=== PATIENT | male | born 1935 | race Caucasian/White ===

== ENCOUNTER 2023-01-14 16:02 | Observation (INO) | payer BC, MEDICARE ==
[2023-01-14] MEDS ORDERED: SODIUM CHLORIDE 0.9% 1,000 ML IV STA (17:25)
[2023-01-14] MEDS ORDERED: MORPHINE SULFATE 4 MG/ML SYRINGE IV STA (17:25)
--- NOTE | 2023-01-14 17:28 | ED ---
Recheck HPI - General Chief Complaint: Recheck/Abnormal Lab/Rx Stated Complaint: cath issue Time Seen by Provider: 01/14/23 17:03 Source: patient, family, RN notes reviewed, old records reviewed, Caregiver Mode of arrival: ambulatory Limitations: no limitations - History of Present Illness Initial Comments: This is a 87-year-old male to the emergency department today. Patient presents for evaluation of inability to ER today. Patient has had a recent Gee catheter placed secondary to urinary retention need be. Patient currently has second for limited and placed secondary retention bleeding and clotting Patient has persistent severe pain with bleeding which occurred after Gee was placed initial Gee had no bleeding. Patient's fluid and stopped working he had a second one place and that is also stop working patient presents today for urol ogical evaluation Complaint: other (0) -: minutes(s) Returns Today for: persistent/worsening pain related to initial visit Context: planned re-check Associated Symptoms: none Treatments Prior to Arrival: other (0) - Related Data Home Medications Medication Instructions Recorded Confirmed Cholecalciferol [Vitamin D3 (25 25 mcg PO DAILY 01/14/23 01/14/23 Mcg = 1000 Iu)] Finasteride [Proscar] 5 mg PO HS 01/14/23 01/14/23 Multivit-Min/FA/Lycopen/Lutein 1 tab PO DAILY 01/14/23 01/14/23 [Centrum Silver Men Tablet] [place]-3 Fatty Acids [[place]-3] 1,000 mg PO HS 01/14/23 01/14/23 Omeprazole 20 mg PO DAILY 01/14/23 01/14/23 Pioglitazone [Actos] 30 mg PO HS 01/14/23 01/14/23 Terazosin [Hytrin] 5 mg PO HS 01/14/23 01/14/23 Vitamin B Complex With Vitamin C 1 tab PO DAILY 01/14/23 01/14/23 glipiZIDE 5 mg PO AC-SUPPER@1700 01/14/23 01/14/23 glipiZIDE [Glucotrol] 10 mg PO AC-BRKFST@1000 01/14/23 01/14/23 Previous Rx's Medication Instructions Recorded Atorvastatin [Lipitor] 10 mg PO HS #30 tab 01/16/23 Allergies Allergy/AdvReac Type Severity Reaction Status Date / Time No Known Allergies Allergy Verified 01/14/23 20:09 Review of Systems ROS Statement: Those systems with pertinent positive or pertinent negative responses have been documented in the HPI. ROS Other: All systems not noted in ROS Statement are negative. Past Medical History Past Medical History: Prostate Disorder History of Any Multi-Drug Resistant Organisms: None Reported Past Surgical History: Back Surgery Past Psychological History: No Psychological Hx Reported Smoking Status: Never smoker Past Alcohol Use History: None Reported Past Drug Use History: None Reported General Exam Limitations: no limitations General appearance: anxious Head exam: Present: atraumatic, normocephalic, normal inspection Eye exam: Present: normal appearance, PERRL, EOMI. Absent: scleral icterus, conjunctival injection, periorbital swelling ENT exam: Present: normal exam, mucous membranes moist Neck exam: Present: normal inspection. Absent: tenderness, meningismus, lymphadenopathy Respiratory exam: Present: normal lung sounds bilaterally. Absent: respiratory distress, wheezes, rales, rhonchi, stridor Cardiovascular Exam: Present: regular rate, normal rhythm, normal heart sounds. Absent: systolic murmur, diastolic murmur, rubs, gallop, clicks GI/Abdominal exam: Present: soft, normal bowel sounds. Absent: distended, tenderness, guarding, rebound, rigid Extremities exam: Present: normal inspection, full ROM, normal capillary refill. Absent: tenderness, pedal edema, joint swelling, calf tenderness Back exam: Present: normal inspection Neurological exam: Present: alert, oriented X3, CN II-XII intact Psychiatric exam: Present: normal affect, normal mood Skin exam: Present: warm, dry, intact, normal color. Absent: rash Course Vital Signs 01/14/23 01/14/23 01/14/23 16:48 17:02 17:40 Temperature 98.3 F Pulse Rate 112 H Pulse Rate [ Right Pulse Oximetery] Respiratory 26 H 30 H Rate Blood Pressure 154/69 Blood Pressure [Right Arm Supine] O2 Sat by Pulse 99 Oximetry 01/14/23 01/14/23 01/14/23 18:04 20:30 22:45 Temperature Pulse Rate 100 81 84 Pulse Rate [ Right Pulse Oximetery] Respiratory 20 18 16 Rate Blood Pressure 110/66 114/58 110/63 Blood Pressure [Right Arm Supine] O2 Sat by Pulse 95 Oximetry 01/15/23 01/15/23 01/15/23 02:02 08:00 08:10 Temperature Pulse Rate 73 Pulse Rate [ 78 82 Right Pulse Oximetery] Respiratory 18 17 17 Rate Blood Pressure 114/67 Blood Pressure 105/57 [Right Arm Supine] O2 Sat by Pulse 96 Oximetry 01/15/23 12:00 Temperature 98.4 F Pulse Rate Pulse Rate [ 78 Right Pulse Oximetery] Respiratory 17 Rate Blood Pressure Blood Pressure 96/66 [Right Arm Supine] O2 Sat by Pulse 97 Oximetry - Reevaluation(s) Reevaluation #1: 01/14/23 23:49 Medical record is reviewed Reevaluation #2: 01/14/23 23:49 Patient's pain is improved, symptoms resolved after Gee placed Good output bloody urine Reevaluation #3: 01/14/23 23:49 Patient informed results and questions answered Reevaluation #4: 01/14/23 23:49 Was pt. sent in by a medical professional or institution (, PA, LETTERPRESS SETTER, urgent care, hospital, or correction...) When possible be specific @ -no Did you speak to anyone other than the patient for history (EMS, parent, family, police, friend...)? What history was obtained from this source @ -no Did you review nursing and triage notes (agree or disagree)? Why? @ -agree Are old charts reviewed (outside hosp., previous admission, EMS record, old EKG, old radiological studies, urgent care reports/EKG's, correction records)? Report findings @ -yes Differential Diagnosis (chest pain, altered mental status, abdominal pain women, abdominal pain men, vaginal bleeding, weakness, fever, dyspnea, syncope, headache, dizziness, GI bleed, back pain, seizure, CVA, palpatations, mental health, musculoskeletal)? @ -prior EKG interpreted by me (3pts min.). @ -no X-rays interpreted by me (1pt min.). @ -no CT interpreted by me (1pt min.). @ -no U/S interpreted by me (1pt. min.). @ -no What testing was considered but not performed or refused? (CT, X-rays, U/S, labs)? Why? @ -none What meds were considered but not given or refused? Why? @ -none Did you discuss the management of the patient with other professionals (professionals i.e. , PA, [employer] SETTER, lab, RT, psych nurse, high school social science teacher, forest pathology teacher, teacher, weapons officer, case filler)? Give summary @ -no Was smoking cessation discussed for >3mins.? @ -no Was critical care preformed (if so, how long)? @ -no Were there social determinants of health that impacted care today? How? (Homelessness, low income, unemployed, alcoholism, drug addiction, transportation, low edu. Level, literacy, decrease access to med. care, skilled nursing, rehab)? @ -none Was there de-escalation of care discussed even if they declined (Discuss DNR or withdrawal of care, Hospice)? DNR status @ -no What co-morbidities impacted this encounter? (DM, HTN, Smoking, COPD, CAD, Cancer, CVA, ARF, Chemo, Hep., AIDS, mental health diagnosis, sleep apnea, morbid obesity)? @ -none Was patient admitted / discharged? Hospital course, mention meds given and route, prescriptions, significant lab abnormalities, going to OR and other pertinent info. @ -87 male the ER today. Patient denies abdominal pain. Not feeling well. Patient will be admitted for urology to evaluate and treat continue antibiotics and monitoring of blood in the ER Discharge Undiagnosed new problem with uncertain prognosis? @ -no Drug Therapy requiring intensive monitoring for toxicity (Heparin, Nitro, Insulin, Cardizem)? @ -no Were any procedures done? @ -no Diagnosis/symptom? @ -Urinary retention with hematuria Acute, or Chronic, or Acute on Chronic? @ -Acute Uncomplicated (without systemic symptoms) or Complicated (systemic symptoms)? @ -Complicated Side effects of treatment? @ -no Exacerbation, Progression, or Severe Exacerbation? @ -exacerbation Poses a threat to life or bodily function? How? (Chest pain, USA, VT, pneumonia, PE, COPD, DKA, ARF, appy, cholecystitis, CVA, Diverticulitis, Homicidal, Suicidal, threat to staff... and all critical care pts) @ -no Reevaluation #5: 01/14/23 23:49 Differential Abdominal Pain Men: Appendicitis, cholecystitis, diverticulosis, ischemic bowel, pancreatitis, hepatitis, UTI, gastroenteritis, AAA, incarcerated hernia, bowel obstruction, constipation, inflammatory bowel, hepatitis, peptic ulcer disease, splenic infarction, perforated viscus, testicular torsion, this is not meant to be an all-inclusive list - Consultations Consultation #1: Spoke with admitting physicians who agree to admit this patient Medical Decision Making - Medical Decision Making 87 male the ER today. Patient denies abdominal pain. Not feeling well. Patient will be admitted for urology to evaluate and treat continue antibiotics and monitoring of blood in the ER - Lab Data Result diagrams: 01/15/23 10:41 01/15/23 10:41 Lab Results 01/14/23 01/14/23 01/14/23 Range/Units 17:55 17:55 17:55 WBC 10.1 (3.8-10.6) k/uL RBC 3.58 L (4.30-5.90) m/uL Hgb 11.2 L (13.0-17.5) gm/dL Hct 35.2 L (39.0-53.0) % MCV 98.5 (80.0-100.0) fL MCH 31.2 (25.0-35.0) pg MCHC 31.7 (31.0-37.0) g/dL RDW 13.8 (11.5-15.5) % Plt Count 209 (150-450) k/uL MPV 7.3 Neutrophils % 95 % Lymphocytes % 1 % Monocytes % 3 % Eosinophils % 0 % Basophils % 0 % Neutrophils # 9.6 H (1.3-7.7) k/uL Lymphocytes # 0.1 L (1.0-4.8) k/uL Monocytes # 0.3 (0-1.0) k/uL Eosinophils # 0.0 (0-0.7) k/uL Basophils # 0.0 (0-0.2) k/uL PT 11.2 (9.0-12.0) sec INR 1.1 (<1.2) APTT 25.0 (22.0-30.0) sec Sodium 133 L (137-145) mmol/L Potassium 4.7 (3.5-5.1) mmol/L Chloride 102 (98-107) mmol/L Carbon Dioxide 19 L (22-30) mmol/L Anion Gap 12 mmol/L BUN 40 H (9-20) mg/dL Creatinine 1.97 H (0.66-1.25) mg/dL Est GFR (CKD-EPI)AfAm 34 (>60 ml/min/1.73 sqM) Est GFR (CKD-EPI)NonAf 30 (>60 ml/min/1.73 sqM) Glucose 437 H (74-99) mg/dL Lactic Ac Sepsis Rflx Plasma Lactic Acid Galo (0.7-2.0) mmol/L Calcium 9.0 (8.4-10.2) mg/dL Phosphorus 3.5 (2.5-4.5) mg/dL Magnesium 1.6 (1.6-2.3) mg/dL Total Bilirubin 1.3 (0.2-1.3) mg/dL AST 30 (17-59) U/L ALT 25 (4-49) U/L Alkaline Phosphatase 85 (38-126) U/L Troponin I (0.000-0.034) ng/mL NT-Pro-B Natriuret Pep 2190 pg/mL Total Protein 6.6 (6.3-8.2) g/dL Albumin 3.8 (3.5-5.0) g/dL Urine Color Urine Appearance (Clear) Urine RBC (0-5) /hpf Urine WBC (0-5) /hpf Urine Bacteria (None) /hpf 01/14/23 01/14/23 01/14/23 Range/Units 17:55 17:55 17:55 WBC (3.8-10.6) k/uL RBC (4.30-5.90) m/uL Hgb (13.0-17.5) gm/dL Hct (39.0-53.0) % MCV (80.0-100.0) fL MCH (25.0-35.0) pg MCHC (31.0-37.0) g/dL RDW (11.5-15.5) % Plt Count (150-450) k/uL MPV Neutrophils % % Lymphocytes % % Monocytes % % Eosinophils % % Basophils % % Neutrophils # (1.3-7.7) k/uL Lymphocytes # (1.0-4.8) k/uL Monocytes # (0-1.0) k/uL Eosinophils # (0-0.7) k/uL Basophils # (0-0.2) k/uL PT (9.0-12.0) sec INR (<1.2) APTT (22.0-30.0) sec Sodium (137-145) mmol/L Potassium (3.5-5.1) mmol/L Chloride (98-107) mmol/L Carbon Dioxide (22-30) mmol/L Anion Gap mmol/L BUN (9-20) mg/dL Creatinine (0.66-1.25) mg/dL Est GFR (CKD-EPI)AfAm (>60 ml/min/1.73 sqM) Est GFR (CKD-EPI)NonAf (>60 ml/min/1.73 sqM) Glucose (74-99) mg/dL Lactic Ac Sepsis Rflx Plasma Lactic Acid Galo 3.0 H* (0.7-2.0) mmol/L Calcium (8.4-10.2) mg/dL Phosphorus (2.5-4.5) mg/dL Magnesium (1.6-2.3) mg/dL Total Bilirubin (0.2-1.3) mg/dL AST (17-59) U/L ALT (4-49) U/L Alkaline Phosphatase (38-126) U/L Troponin I 0.070 H* (0.000-0.034) ng/mL NT-Pro-B Natriuret Pep pg/mL Total Protein (6.3-8.2) g/dL Albumin (3.5-5.0) g/dL Urine Color Red Urine Appearance Bloody (Clear) Urine RBC >182 H (0-5) /hpf Urine WBC >182 H (0-5) /hpf Urine Bacteria Many H (None) /hpf 01/14/23 01/14/23 Range/Units 18:34 20:40 WBC (3.8-10.6) k/uL RBC (4.30-5.90) m/uL Hgb (13.0-17.5) gm/dL Hct (39.0-53.0) % MCV (80.0-100.0) fL MCH (25.0-35.0) pg MCHC (31.0-37.0) g/dL RDW (11.5-15.5) % Plt Count (150-450) k/uL MPV Neutrophils % % Lymphocytes % % Monocytes % % Eosinophils % % Basophils % % Neutrophils # (1.3-7.7) k/uL Lymphocytes # (1.0-4.8) k/uL Monocytes # (0-1.0) k/uL Eosinophils # (0-0.7) k/uL Basophils # (0-0.2) k/uL PT (9.0-12.0) sec INR (<1.2) APTT (22.0-30.0) sec Sodium (137-145) mmol/L Potassium (3.5-5.1) mmol/L Chloride (98-107) mmol/L Carbon Dioxide (22-30) mmol/L Anion Gap mmol/L BUN (9-20) mg/dL Creatinine (0.66-1.25) mg/dL Est GFR (CKD-EPI)AfAm (>60 ml/min/1.73 sqM) Est GFR (CKD-EPI)NonAf (>60 ml/min/1.73 sqM) Glucose (74-99) mg/dL Lactic Ac Sepsis Rflx Y Plasma Lactic Acid Galo 2.3 H* (0.7-2.0) mmol/L Calcium (8.4-10.2) mg/dL Phosphorus (2.5-4.5) mg/dL Magnesium (1.6-2.3) mg/dL Total Bilirubin (0.2-1.3) mg/dL AST (17-59) U/L ALT (4-49) U/L Alkaline Phosphatase (38-126) U/L Troponin I (0.000-0.034) ng/mL NT-Pro-B Natriuret Pep pg/mL Total Protein (6.3-8.2) g/dL Albumin (3.5-5.0) g/dL Urine Color Urine Appearance (Clear) Urine RBC (0-5) /hpf Urine WBC (0-5) /hpf Urine Bacteria (None) /hpf Disposition Clinical Impression: Urinary retention, Hematuria, UTI (urinary tract infection) Disposition: ADMITTED IP TO THIS HOSP Is patient prescribed a controlled substance at d/c from ED?: No Time of Disposition: 21:00
[2023-01-14 18:13] LABS: Basophils % (A) 0 %; Eosinophils % (A) 0 %; HCT 35.2 % (39.0-53.0); HGB 11.2 gm/dL (13.0-17.5); Lymphocytes # (A) 0.1 k/uL (1.0-4.8); Lymphocytes % (A) 1 %; MCH 31.2 pg (25.0-35.0); MCHC 31.7 g/dL (31.0-37.0); MCV 98.5 fL (80.0-100.0); Mean Platelet Volume 7.3; Monocytes # (A) 0.3 k/uL (0-1.0); Monocytes % (A) 3 %; Neutrophils # (A) 9.6 k/uL (1.3-7.7); Neutrophils % (A) 95 %; Platelet Count 209 k/uL (150-450); RBC 3.58 m/uL (4.30-5.90); RDW 13.8 % (11.5-15.5); WBC 10.1 k/uL (3.8-10.6)
[2023-01-14 18:20] LABS: ALT 25 U/L (4-49); AST 30 U/L (17-59); African American GFR (CKD) 34 (>60 ml/min/1.73 sqM); Albumin 3.8 g/dL (3.5-5.0); Alkaline Phosphatase 85 U/L (38-126); Anion Gap 12 mmol/L; Blood Urea Nitrogen 40 mg/dL (9-20); Carbon Dioxide 19 mmol/L (22-30); Chloride 102 mmol/L (98-107); Glucose 437 mg/dL (74-99); Magnesium 1.6 mg/dL (1.6-2.3); Non-African American GFR(CKD) 30 (>60 ml/min/1.73 sqM); Phosphorus 3.5 mg/dL (2.5-4.5); Potassium 4.7 mmol/L (3.5-5.1); Sodium 133 mmol/L (137-145); Total Bilirubin 1.3 mg/dL (0.2-1.3); Total Protein 6.6 g/dL (6.3-8.2)
[2023-01-14 18:22] LABS: INR 1.1 (<1.2); Prothrombin Time 11.2 sec (9.0-12.0)
[2023-01-14 18:28] LABS: NT-Pro-B-Type Natriuretic Pept 2190 pg/mL
[2023-01-14 18:32] LABS: Bacteria,Urine Many /hpf; RBC,Urine >182 /hpf (0-5); WBC,Urine >182 /hpf (0-5)
[2023-01-14 18:33] LABS: Appearance,Urine Bloody (Clear)
[2023-01-14 18:34] LABS: Color,Urine Red
[2023-01-14] MEDS ORDERED: ONDANSETRON 4 MG/2 ML VIAL IVP PRN (20:56)
[2023-01-14] MEDS ORDERED: NALOXONE 0.4 MG/ML 1 ML VIAL IV PRN (20:56)
[2023-01-14] MEDS ORDERED: lisinopriL 5 MG TAB PO SCH (22:30)
[2023-01-14] MEDS: ATORVASTATIN 10 MG TAB PO SCH (22:35)
[2023-01-14] MEDS: FINASTERIDE 5 MG TAB PO SCH (22:35)
[2023-01-14] MEDS: DOXAZOSIN 4 MG TAB PO SCH (22:35)
[2023-01-14] MEDS: NON FORMULARY DRUG (Omega-3 Fatty Acids [Omega-3] 1,000 MG Capsule) PO SCH (22:49)
[2023-01-14] MEDS: PIOGLITAZONE 30 MG TAB PO SCH (22:49)
[2023-01-15] MEDS ORDERED: ASPIRIN 325 MG TAB PO STA (02:26)
[2023-01-15 07:32] LABS: Glucose,Whole Blood 182 mg/dL (70-110)
[2023-01-15] MEDS ORDERED: ASPIRIN 325 MG TAB PO SCH (09:00)
[2023-01-15] MEDS ORDERED: VITAMIN B COMPLEX PO SCH (09:00)
[2023-01-15] MEDS ORDERED: [UNRECOGNIZED DRUG - OTHER] PO SCH (09:00)
[2023-01-15] MEDS: CHOLECALCIFEROL 25 MCG (1000 IU) TABLET PO SCH (09:41)
[2023-01-15] MEDS: glipiZIDE 10 MG TAB PO SCH (09:41)
[2023-01-15] MEDS: PANTOPRAZOLE 40 MG TABLET PO SCH (09:41)
[2023-01-15] MEDS: MULTIVITAMINS, THERA 1 EACH TAB PO SCH (09:41)
--- NOTE | 2023-01-15 09:45 | P.GSCN ---
History of Present Illness Consult date: 01/15/23 Reason for Consult: Urinary retention Requesting physician: Dipak Carroll History of present illness: The patient is an 87-year-old white male with a history of BPH, for which he takes finasteride 5 mg daily and terazosin 5 mg daily. He has been followed by Dr. Delgado in the past, and last saw him 3 years ago. One week ago, he presented to [facility] due to inability to urinate. A Gee catheter was placed, with return of 1500 mL of urine. The catheter was draining well until January 13, when the patient was driving around with his grandson in a pickup truck and developed hematuria. The Gee catheter became plugged, requiring catheter change. 1300 mL of urine was removed at that time. He has been transferred to [facility] for further management. The catheter was changed here to a 14-Romansh catheter, which is draining slightly blood-tinged urine. Incidentally, he has experienced occasional rectal bleeding and was told this is due to hemorrhoids. Review of Systems - Constitutional Denies chills, Denies fever - Gastrointestinal Reports as per HPI - Genitourinary Reports as per HPI Past Medical History Past Medical History: Prostate Disorder History of Any Multi-Drug Resistant Organisms: None Reported Past Surgical History: Back Surgery Past Psychological History: No Psychological Hx Reported Smoking Status: Never smoker Past Alcohol Use History: None Reported Past Drug Use History: None Reported Medications and Allergies Home Medications Medication Instructions Recorded Confirmed Type Cholecalciferol [Vitamin D3 (25 25 mcg PO DAILY 01/14/23 01/14/23 History Mcg = 1000 Iu)] Finasteride [Proscar] 5 mg PO HS 01/14/23 01/14/23 History Multivit-Min/FA/Lycopen/Lutein 1 tab PO DAILY 01/14/23 01/14/23 History [Centrum Silver Men Tablet] [place]-3 Fatty Acids [[place]-3] 1,000 mg PO HS 01/14/23 01/14/23 History Omeprazole 20 mg PO DAILY 01/14/23 01/14/23 History Pioglitazone [Actos] 30 mg PO HS 01/14/23 01/14/23 History Simvastatin [Zocor] 20 mg PO HS 01/14/23 01/14/23 History Terazosin [Hytrin] 5 mg PO HS 01/14/23 01/14/23 History Vitamin B Complex With Vitamin C 1 tab PO DAILY 01/14/23 01/14/23 History glipiZIDE 5 mg PO AC-SUPPER@1700 01/14/23 01/14/23 History glipiZIDE [Glucotrol] 10 mg PO AC-BRKFST@1000 01/14/23 01/14/23 History lisinopriL [Zestril] 5 mg PO HS 01/14/23 01/14/23 History Allergies Allergy/AdvReac Type Severity Reaction Status Date / Time No Known Allergies Allergy Verified 01/14/23 20:09 Surgical - Exam Vital Signs Pulse Resp BP Pulse Ox 112 H 26 H 154/69 99 01/14/23 16:48 01/14/23 16:48 01/14/23 16:48 01/14/23 16:48 - General well developed, well nourished, no distress - Respiratory normal respiratory effort - Abdomen Abdomen: soft, non tender, no guarding, no rigid, no rebound - Genitourinary normal penis with no external lesions, testicles non-tender - Rectum Normal sphincter tone. Palpable irregularity on the anterior rectal wall. Prostate is significantly enlarged and smooth. - Psychiatric oriented to time, oriented to person, oriented to place, speech is normal, terrie ry intact Results - Labs 01/14/23 17:55 01/14/23 17:55 Abnormal Lab Results - Last 24 Hours (Table) 01/14/23 01/14/23 01/14/23 Range/Units 17:55 17:55 17:55 RBC 3.58 L (4.30-5.90) m/uL Hgb 11.2 L (13.0-17.5) gm/dL Hct 35.2 L (39.0-53.0) % Neutrophils # 9.6 H (1.3-7.7) k/uL Lymphocytes # 0.1 L (1.0-4.8) k/uL Sodium 133 L (137-145) mmol/L Carbon Dioxide 19 L (22-30) mmol/L BUN 40 H (9-20) mg/dL Creatinine 1.97 H (0.66-1.25) mg/dL Glucose 437 H (74-99) mg/dL Plasma Lactic Acid Galo 3.0 H* (0.7-2.0) mmol/L Troponin I (0.000-0.034) ng/mL Urine RBC (0-5) /hpf Urine WBC (0-5) /hpf Urine Bacteria (None) /hpf 01/14/23 01/14/23 01/14/23 Range/Units 17:55 17:55 20:40 RBC (4.30-5.90) m/uL Hgb (13.0-17.5) gm/dL Hct (39.0-53.0) % Neutrophils # (1.3-7.7) k/uL Lymphocytes # (1.0-4.8) k/uL Sodium (137-145) mmol/L Carbon Dioxide (22-30) mmol/L BUN (9-20) mg/dL Creatinine (0.66-1.25) mg/dL Glucose (74-99) mg/dL Plasma Lactic Acid Galo 2.3 H* (0.7-2.0) mmol/L Troponin I 0.070 H* (0.000-0.034) ng/mL Urine RBC >182 H (0-5) /hpf Urine WBC >182 H (0-5) /hpf Urine Bacteria Many H (None) /hpf 01/14/23 01/15/23 Range/Units 21:48 00:05 RBC (4.30-5.90) m/uL Hgb (13.0-17.5) gm/dL Hct (39.0-53.0) % Neutrophils # (1.3-7.7) k/uL Lymphocytes # (1.0-4.8) k/uL Sodium (137-145) mmol/L Carbon Dioxide (22-30) mmol/L BUN (9-20) mg/dL Creatinine (0.66-1.25) mg/dL Glucose (74-99) mg/dL Plasma Lactic Acid Galo (0.7-2.0) mmol/L Troponin I 0.161 H* 0.185 H* (0.000-0.034) ng/mL Urine RBC (0-5) /hpf Urine WBC (0-5) /hpf Urine Bacteria (None) /hpf Diabetes panel 01/14/23 Range/Units 17:55 Sodium 133 L (137-145) mmol/L Potassium 4.7 (3.5-5.1) mmol/L Chloride 102 (98-107) mmol/L Carbon Dioxide 19 L (22-30) mmol/L BUN 40 H (9-20) mg/dL Creatinine 1.97 H (0.66-1.25) mg/dL Glucose 437 H (74-99) mg/dL Calcium 9.0 (8.4-10.2) mg/dL AST 30 (17-59) U/L ALT 25 (4-49) U/L Alkaline Phosphatase 85 (38-126) U/L Total Protein 6.6 (6.3-8.2) g/dL Albumin 3.8 (3.5-5.0) g/dL Calcium panel 01/14/23 Range/Units 17:55 Calcium 9.0 (8.4-10.2) mg/dL Phosphorus 3.5 (2.5-4.5) mg/dL Albumin 3.8 (3.5-5.0) g/dL Pituitary panel 01/14/23 Range/Units 17:55 Sodium 133 L (137-145) mmol/L Potassium 4.7 (3.5-5.1) mmol/L Chloride 102 (98-107) mmol/L Carbon Dioxide 19 L (22-30) mmol/L BUN 40 H (9-20) mg/dL Creatinine 1.97 H (0.66-1.25) mg/dL Glucose 437 H (74-99) mg/dL Calcium 9.0 (8.4-10.2) mg/dL Adrenal panel 01/14/23 Range/Units 17:55 Sodium 133 L (137-145) mmol/L Potassium 4.7 (3.5-5.1) mmol/L Chloride 102 (98-107) mmol/L Carbon Dioxide 19 L (22-30) mmol/L BUN 40 H (9-20) mg/dL Creatinine 1.97 H (0.66-1.25) mg/dL Glucose 437 H (74-99) mg/dL Calcium 9.0 (8.4-10.2) mg/dL Total Bilirubin 1.3 (0.2-1.3) mg/dL AST 30 (17-59) U/L ALT 25 (4-49) U/L Alkaline Phosphatase 85 (38-126) U/L Total Protein 6.6 (6.3-8.2) g/dL Albumin 3.8 (3.5-5.0) g/dL Assessment and Plan (1) Urinary retention Current Visit: Yes Status: Acute Code(s): R33.9 - RETENTION OF URINE, UNSPECIFIED SNOMED Code(s): 295495234 (2) Benign prostatic hyperplasia with lower urinary tract symptoms Current Visit: Yes Status: Acute Code(s): N40.1 - BENIGN PROSTATIC HYPERPLASIA WITH LOWER URINARY TRACT SYMP SNOMED Code(s): 078966877 Plan: I explained to the patient that bladder overdistention results in weakening of the bladder. He will continue to take terazosin and finasteride. He reports occasional orthostatic dizziness, so I have elected not to increase the dosage of terazosin. He has an appointment to see Dr. Delgado in January 17, but I have suggested he leave the catheter in and see Dr. Delgado the following week to give the bladder more time to regain muscle tone. The 14-Romansh Gee catheter will be exchanged for an 18-Romansh catheter, which is less likely to be plugged by a small clot. I also advised the patient to undergo GI evaluation, so that sigmoidoscopy could be performed to confirm that the rectal bleeding he has experienced is indeed due to hemorrhoids rather than a rectal tumor. Time with Patient: Greater than 30
--- NOTE | 2023-01-15 10:31 | P.CRDCN ---
History of Present Illness Consult date: 01/15/23 Reason for Consult (text): elevated troponin Consult reason: other Chief complaint: urinary retention History of present illness: History of present illness: Patient is a pleasant 87-year-old male with significant past medical history of diabetes type 2, hypertension, hyperlipidemia, and BPH who was transferred from [facility] for further management of urinary retention and hematuria. He reports that approximately 1 week ago he had a Gee catheter placed for urinary retention, this was then removed yesterday morning however he was unable to pass urine and had Gee catheter replaced. He then developed hematuria and blood clots in his catheter and presented back to the hospital. Cardiology was consulted for abnormal troponins. He does not follow with a scalp treatment specialist and denies having any heart stents. He believes his last stress test was many years ago. He has not been having any chest pain or pressure. Denies any shortness of breath, dizziness, syncope. He was on aspirin previously but reports he has not been on any blood thinners for many years. Denies any recent illness, no fevers or chills. Labs reviewed: Lactic acid 3.0 initially. Troponin elevated 0.161, 0.185. Creatinine 1.97. Hemoglobin 11.2. He is currently being treated for urinary tract infection. He did receive aspirin overnight. EKG shows sinus rhythm with right bundle branch block, nonspecific T-wave inversion. REVIEW OF SYSTEMS: No fever or chills. No cough or expectoration. No diaphoresis. Patient denies headache, dizziness, blurred vision, double vision. Patient denies any stomach discomfort. No nausea, vomiting. No hematochezia. No hematemesis. Reports blood in urine. No muscle weakness or numbness. No chest pain or pressure. PHYSICAL EXAMINATION: This is a 87-year-old male in no apparent distress at the time of my examination. HEENT: Head is atraumatic, normocephalic. Pupils are equal, round. Sclerae anicteric. Conjunctivae are clear. Mucous membranes of the mouth are moist. Neck is supple. There is no jugular venous distention. No carotid bruit is heard. CHEST EXAMINATION: Lungs are clear to auscultation. No chest wall tenderness is noted on palpation or with deep breathing. HEART EXAMINATION: Heart regular rate and rhythm. S1, S2 heard. No murmurs, g allops or rub. ABDOMEN: Soft, nontender. Bowel sounds are heard. Gee catheter in place draining dark urine. EXTREMITIES: 2+ peripheral pulses with no evidence of peripheral edema and no calf tenderness noted. NEUROLOGIC EXAMINATION: Patient is awake, alert and oriented x3. IMPRESSION AND PLAN: NSTEMI likely secondary to elevated creatinine and/or infection Hypertension, blood pressure is currently borderline low Hyperlipidemia Diabetes type 2 BPH Urinary retention Hematuria PLAN: Elevated troponins are likely secondary to increased kidney function and urinary tract infection. He is not having any chest pain or shortness of breath. We will check echocardiogram to evaluate heart function and structure. Ideally, would recommend starting aspirin 81 mg by mouth daily if cleared by ur ology given hematuria. We will follow. I am dictating on behalf of Dr. Jim Meza's history/physical and assessment/plan. Past Medical History Past Medical History: Prostate Disorder History of Any Multi-Drug Resistant Organisms: None Reported Past Surgical History: Back Surgery Past Psychological History: No Psychological Hx Reported Smoking Status: Never smoker Past Alcohol Use History: None Reported Past Drug Use History: None Reported Medications and Allergies Home Medications Medication Instructions Recorded Confirmed Type Cholecalciferol [Vitamin D3 (25 25 mcg PO DAILY 01/14/23 01/14/23 History Mcg = 1000 Iu)] Finasteride [Proscar] 5 mg PO HS 01/14/23 01/14/23 History Multivit-Min/FA/Lycopen/Lutein 1 tab PO DAILY 01/14/23 01/14/23 History [Centrum Silver Men Tablet] [place]top[place]-3 Fatty Acids [El[place]ia-3] 1,000 mg PO HS 01/14/23 01/14/23 History Omeprazole 20 mg PO DAILY 01/14/23 01/14/23 History Pioglitazone [Actos] 30 mg PO HS 01/14/23 01/14/23 History Simvastatin [Zocor] 20 mg PO HS 01/14/23 01/14/23 History Terazosin [Hytrin] 5 mg PO HS 01/14/23 01/14/23 History Vitamin B Complex With Vitamin C 1 tab PO DAILY 01/14/23 01/14/23 History glipiZIDE 5 mg PO AC-SUPPER@1700 01/14/23 01/14/23 History glipiZIDE [Glucotrol] 10 mg PO AC-BRKFST@1000 01/14/23 01/14/23 History lisinopriL [Zestril] 5 mg PO HS 01/14/23 01/14/23 History Allergies Allergy/AdvReac Type Severity Reaction Status Date / Time No Known Allergies Allergy Verified 01/14/23 20:09 Physical Exam Vitals: Vital Signs Temp Pulse Pulse Resp BP BP Pulse Ox 01/15/23 08:10 82 17 105/57 96 01/15/23 02:02 73 18 114/67 01/14/23 22:45 84 16 110/63 01/14/23 20:30 81 18 114/58 01/14/23 18:04 100 20 110/66 95 01/14/23 17:40 30 H 01/14/23 17:02 98.3 F 01/14/23 16:48 112 H 26 H 154/69 99 Intake and Output 01/14/23 01/15/23 01/15/23 22:59 06:59 14:59 Intake Total 360 Output Total 1300 750 Balance -1300 -390 Intake: Oral 360 Output: Urine 1300 750 Other: Weight 83.007 kg Results 01/14/23 17:55 01/14/23 17:55 Cardiac Enzymes 01/14/23 01/14/23 01/14/23 Range/Units 17:55 17:55 21:48 AST 30 (17-59) U/L Troponin I 0.070 H* 0.161 H* (0.000-0.034) ng/mL 01/15/23 Range/Units 00:05 AST (17-59) U/L Troponin I 0.185 H* (0.000-0.034) ng/mL Coagulation 01/14/23 Range/Units 17:55 PT 11.2 (9.0-12.0) sec APTT 25.0 (22.0-30.0) sec CBC 01/14/23 Range/Units 17:55 WBC 10.1 (3.8-10.6) k/uL RBC 3.58 L (4.30-5.90) m/uL Hgb 11.2 L (13.0-17.5) gm/dL Hct 35.2 L (39.0-53.0) % Plt Count 209 (150-450) k/uL Comprehensive Metabolic Panel 01/14/23 Range/Units 17:55 Sodium 133 L (137-145) mmol/L Potassium 4.7 (3.5-5.1) mmol/L Chloride 102 (98-107) mmol/L Carbon Dioxide 19 L (22-30) mmol/L BUN 40 H (9-20) mg/dL Creatinine 1.97 H (0.66-1.25) mg/dL Glucose 437 H (74-99) mg/dL Calcium 9.0 (8.4-10.2) mg/dL AST 30 (17-59) U/L ALT 25 (4-49) U/L Alkaline Phosphatase 85 (38-126) U/L Total Protein 6.6 (6.3-8.2) g/dL Albumin 3.8 (3.5-5.0) g/dL Current Medications Generic Name Dose Route Start Last Admin Trade Name Freq PRN Reason Stop Dose Admin Atorvastatin Calcium 10 mg 01/14/23 22:15 01/14/23 22:35 Atorvastatin 10 Mg Tab PO 10 mg HS KRUPA Administration Cholecalciferol 25 mcg 01/15/23 09:00 01/15/23 09:41 Cholecalciferol 25 Mcg (1000 Iu) Tablet PO 25 mcg DAILY KRUPA Administration Doxazosin Mesylate 4 mg 01/14/23 22:30 01/14/23 22:35 Doxazosin 4 Mg Tab PO 4 mg HS KRUPA Administration Finasteride 5 mg 01/14/23 22:30 01/14/23 22:35 Finasteride 5 Mg Tab PO 5 mg HS KRUPA Administration Glipizide 5 mg 01/15/23 17:00 Glipizide 5 Mg Tab PO AC-SUPPER@1700 KRUPA Glipizide 10 mg 01/15/23 10:00 01/15/23 09:41 Glipizide 10 Mg Tab PO 10 mg AC-BRKFST@1000 KRUPA Administration Ceftriaxone Sodium 2 gm/ 50 mls @ 100 mls/hr 01/15/23 09:00 Sodium Chloride IVPB Q24HR KRUPA Protocol Lisinopril 5 mg 01/14/23 22:30 01/14/23 22:35 Lisinopril 5 Mg Tab PO 5 mg HS KRUPA Administration Multivitamins 1 each 01/15/23 09:00 01/15/23 09:41 Multivitamins, Thera 1 Each Tab PO 1 each DAILY KRUPA Administration Naloxone HCl 0.2 mg 01/14/23 20:56 Naloxone 0.4 Mg/Ml 1 Ml Vial IV Q2M PRN Opioid Reversal Non-Formulary Medication 1,000 mg 01/14/23 22:30 01/14/23 22:49 Eltopia-3 Fatty Acids [Eltopia-3] PO Not Given HS KRUPA Ondansetron HCl 4 mg 01/14/23 20:56 Ondansetron 4 Mg/2 Ml Vial IVP Q8HR PRN Nausea And Vomiting Pantoprazole Sodium 40 mg 01/15/23 09:00 01/15/23 09:41 Pantoprazole 40 Mg Tablet PO 40 mg DAILY KRUPA Administration Pioglitazone HCl 30 mg 01/14/23 22:30 01/14/23 22:49 Pioglitazone 30 Mg Tab PO 30 mg HS KRUPA Administration Intake and Output 01/14/23 01/15/23 01/15/23 22:59 06:59 14:59 Intake Total 360 Output Total 1300 750 Balance -1300 -390 Intake: Oral 360 Output: Urine 1300 750 Other: Weight 83.007 kg 01/14/23 17:55 01/14/23 17:55
[2023-01-15 11:18] LABS: Basophils % (A) 0 %; Eosinophils # (A) 0.1 k/uL (0-0.7); Eosinophils % (A) 1 %; HCT 32.9 % (39.0-53.0); HGB 10.7 gm/dL (13.0-17.5); Lymphocytes # (A) 0.7 k/uL (1.0-4.8); Lymphocytes % (A) 6 %; MCHC 32.5 g/dL (31.0-37.0); MCV 98.2 fL (80.0-100.0); Mean Platelet Volume 7.8; Monocytes # (A) 0.6 k/uL (0-1.0); Monocytes % (A) 5 %; Neutrophils # (A) 9.7 k/uL (1.3-7.7); Neutrophils % (A) 87 %; Platelet Count 170 k/uL (150-450); RBC 3.34 m/uL (4.30-5.90); RDW 13.9 % (11.5-15.5)
[2023-01-15 11:40] LABS: ALT 25 U/L (4-49); AST 32 U/L (17-59); African American GFR (CKD) 42 (>60 ml/min/1.73 sqM); Albumin 3.3 g/dL (3.5-5.0); Alkaline Phosphatase 73 U/L (38-126); Anion Gap 9 mmol/L; Blood Urea Nitrogen 41 mg/dL (9-20); Calcium 8.9 mg/dL (8.4-10.2); Carbon Dioxide 22 mmol/L (22-30); Chloride 105 mmol/L (98-107); Glucose 161 mg/dL (74-99); Magnesium 1.9 mg/dL (1.6-2.3); Non-African American GFR(CKD) 36 (>60 ml/min/1.73 sqM); Phosphorus 3.3 mg/dL (2.5-4.5); Potassium 4.2 mmol/L (3.5-5.1); Sodium 136 mmol/L (137-145); Total Bilirubin 0.7 mg/dL (0.2-1.3)
[2023-01-15 12:12] LABS: Glucose,Whole Blood 130 mg/dL (70-110)
[2023-01-15 16:32] LABS: Glucose,Whole Blood 183 mg/dL (70-110)
--- NOTE | 2023-01-15 16:58 | P.HPIM ---
History of Present Illness H&P Date: 01/15/23 Chief Complaint: Hematuria Pleasant 87-year-old patient who follows with Dr. Pipo Griffith. Chronic stable medical conditions include hypertension, hyperlipidemia, BPH, diabetes, GERD. Patient lives alone and is able to get about on his own. About a week ago patient went [facility] for urinary retention. Gee catheter was placed and patient about 1500 mL of urine. She has seen urologist Dr. London in the past. After 4 days patient went on a truck ride with a friend who is a rather bumpy ride to the catheter pulling. Patient started having hematuria for that. Gee catheter had to be changed at the outside ER and again 30 90 mL of urine was obtained. He was then transferred to [facility] in [place]. Seen by urologist. Here he was changed to a 14-Kenyan catheter. It is started to clear up. Patient also noted to have intermittent bleeding whi ch she notices on his started pain but after bowel movement. This is examined at [facility] he was told he has hemorrhoids. Currently patient laying in bed. Comfortable. Patient's son and daughter -in-law at the bedside. Patient states he has elevated chronic kidney disease. Patient is still active and helps out at the [employer] and also had shown with his son's insurance company. Review of systems: GEN.: A bit tired EYES: None HEENT: Decreased hearing NECK: None RESPIRATORY: None CARDIOVASCULAR: None GASTROINTESTINAL: None GENITOURINARY: As above MUSCULOSKELETAL: Some arthritis LYMPHATICS: None HEMATOLOGICAL: None PSYCHIATRY: None NEUROLOGICAL: None Past medical history to include: Hypertension, hyperlipidemia, BPH, GERD, osteoarthritis Social history: Lives alone. No smoking or alcohol.. Hasn't sought of the [employer] and also helps out of insurance company. Physical examination: VITAL SIGNS: 98.3, 112, 20, 110 /66, 95% room air upon presentation GENERAL: BMI 27, declining bed awake comfortable. EYES: Pupils equal. Conjunctiva normal. HEENT: External appearance of nose and ears normal, oral cavity grossly normal. Decreased hearing NECK: JVD not raised; masses not palpable. HEART: First and second heart sounds are normal; no edema. LUNGS: Respiratory rate normal; clear to auscultation. ABDOMEN: Soft, nontender, liver spleen not palpable, no masses palpable. Gee catheter with strong-appearing urine PSYCH: Alert and oriented x3; mood and affect normal. MUSCULOSKELETAL:No Clubbing/cyanosis;muscles-grossly intact. OA NEUROLOGICAL: Cranial nerves grossly intact; no facial asymmetry, power and sensation grossly intact. LYMPHATICS: No lymph nodes palpable in the axilla and neck INVESTIGATIONS, reviewed in the clinical context: January 15: White count 11 hemoglobin 10.7 platelets 170 potassium 4.2 BUN 41 and creatinine 1.69 Troponin I 0.07, 0.161, 0.18 Assessment and plan: -Acute hematuria, which developed when patient was riding in a truck, remembers Gee catheter pulling on his penis. Traumatic hematuria. Has started to clear up. 14-Kenyan catheter was placed in the ER. Patient to follow-up with Dr. London outpatient. Seen by Dr. Pena of this admission. -Chronic kidney disease suspect stage III. Rule out obstructive component. There could be a component of diabetic nephropathy. Will DC patient's JEANINE inhibitor as blood pressure running on the lower side. IV fluids. Repeat labs in the responding. -Severe BPH Proscar. Hytrin. -Diabetes mellitus type 2 on oral hypoglycemic On Glucotrol, glipizide, Actos. Follow Accu-Chek with sliding scale insulin -Primary osteoarthritis Tylenol as needed -Essential hypertension Keep patient on Hytrin. Patient is also on Cardura. Stop lisinopril. -Full code. Discussed with patient Stop lisinopril. Renal ultrasound. IV fluids. Repeat labs in the morning. If stable and can be discharged to home. Care was discussed with the patient's son and [id number] at the bedside. Questions answered. Past Medical History Past Medical History: Prostate Disorder History of Any Multi-Drug Resistant Organisms: None Reported Past Surgical History: Back Surgery Past Anesthesia/Blood Transfusion Reactions: No Reported Reaction Past Psychological History: No Psychological Hx Reported Smoking Status: Never smoker Past Alcohol Use History: None Reported Past Drug Use History: None Reported Medications and Allergies Home Medications Medication Instructions Recorded Confirmed Type Cholecalciferol [Vitamin D3 (25 25 mcg PO DAILY 01/14/23 01/14/23 History Mcg = 1000 Iu)] Finasteride [Proscar] 5 mg PO HS 01/14/23 01/14/23 History Multivit-Min/FA/Lycopen/Lutein 1 tab PO DAILY 01/14/23 01/14/23 History [Centrum Silver Men Tablet] [place]-3 Fatty Acids [[place]-3] 1,000 mg PO HS 01/14/23 01/14/23 History Omeprazole 20 mg PO DAILY 01/14/23 01/14/23 History Pioglitazone [Actos] 30 mg PO HS 01/14/23 01/14/23 History Simvastatin [Zocor] 20 mg PO HS 01/14/23 01/14/23 History Terazosin [Hytrin] 5 mg PO HS 01/14/23 01/14/23 History Vitamin B Complex With Vitamin C 1 tab PO DAILY 01/14/23 01/14/23 History glipiZIDE 5 mg PO AC-SUPPER@1700 01/14/23 01/14/23 History glipiZIDE [Glucotrol] 10 mg PO AC-BRKFST@1000 01/14/23 01/14/23 History lisinopriL [Zestril] 5 mg PO HS 01/14/23 01/14/23 History Allergies Allergy/AdvReac Type Severity Reaction Status Date / Time No Known Allergies Allergy Verified 01/14/23 20:09 Physical Exam Vitals: Vital Signs Temp Pulse Pulse Resp BP BP Pulse Ox 01/15/23 12:00 98.4 F 78 17 96/66 97 01/15/23 08:10 82 17 105/57 96 01/15/23 08:00 78 17 01/15/23 02:02 73 18 114/67 01/14/23 22:45 84 16 110/63 01/14/23 20:30 81 18 114/58 01/14/23 18:04 100 20 110/66 95 01/14/23 17:40 30 H 01/14/23 17:02 98.3 F 01/14/23 16:48 112 H 26 H 154/69 99 Intake and Output 01/14/23 01/15/23 01/15/23 22:59 06:59 14:59 Intake Total 478 Output Total 1300 750 Balance -1300 -272 Intake: Oral 478 Output: Urine 1300 750 Other: Voiding Method Indwelling Catheter Weight 83.007 kg 83.007 kg Results CBC & Chem 7: 01/15/23 10:41 01/15/23 10:41 Labs: Abnormal Lab Results - Last 24 Hours (Table) 01/14/23 01/14/23 01/14/23 Range/Units 17:55 17:55 17:55 WBC (3.8-10.6) k/uL RBC 3.58 L (4.30-5.90) m/uL Hgb 11.2 L (13.0-17.5) gm/dL Hct 35.2 L (39.0-53.0) % Neutrophils # 9.6 H (1.3-7.7) k/uL Lymphocytes # 0.1 L (1.0-4.8) k/uL Sodium 133 L (137-145) mmol/L Carbon Dioxide 19 L (22-30) mmol/L BUN 40 H (9-20) mg/dL Creatinine 1.97 H (0.66-1.25) mg/dL Glucose 437 H (74-99) mg/dL POC Glucose (mg/dL) (70-110) mg/dL Plasma Lactic Acid Galo 3.0 H* (0.7-2.0) mmol/L Troponin I (0.000-0.034) ng/mL Total Protein (6.3-8.2) g/dL Albumin (3.5-5.0) g/dL Urine RBC (0-5) /hpf Urine WBC (0-5) /hpf Urine Bacteria (None) /hpf 01/14/23 01/14/23 01/14/23 Range/Units 17:55 17:55 20:40 WBC (3.8-10.6) k/uL RBC (4.30-5.90) m/uL Hgb (13.0-17.5) gm/dL Hct (39.0-53.0) % Neutrophils # (1.3-7.7) k/uL Lymphocytes # (1.0-4.8) k/uL Sodium (137-145) mmol/L Carbon Dioxide (22-30) mmol/L BUN (9-20) mg/dL Creatinine (0.66-1.25) mg/dL Glucose (74-99) mg/dL POC Glucose (mg/dL) (70-110) mg/dL Plasma Lactic Acid Galo 2.3 H* (0.7-2.0) mmol/L Troponin I 0.070 H* (0.000-0.034) ng/mL Total Protein (6.3-8.2) g/dL Albumin (3.5-5.0) g/dL Urine RBC >182 H (0-5) /hpf Urine WBC >182 H (0-5) /hpf Urine Bacteria Many H (None) /hpf 01/14/23 01/15/23 01/15/23 Range/Units 21:48 00:05 07:28 WBC (3.8-10.6) k/uL RBC (4.30-5.90) m/uL Hgb (13.0-17.5) gm/dL Hct (39.0-53.0) % Neutrophils # (1.3-7.7) k/uL Lymphocytes # (1.0-4.8) k/uL Sodium (137-145) mmol/L Carbon Dioxide (22-30) mmol/L BUN (9-20) mg/dL Creatinine (0.66-1.25) mg/dL Glucose (74-99) mg/dL POC Glucose (mg/dL) 182 H (70-110) mg/dL Plasma Lactic Acid Galo (0.7-2.0) mmol/L Troponin I 0.161 H* 0.185 H* (0.000-0.034) ng/mL Total Protein (6.3-8.2) g/dL Albumin (3.5-5.0) g/dL Urine RBC (0-5) /hpf Urine WBC (0-5) /hpf Urine Bacteria (None) /hpf 01/15/23 01/15/23 01/15/23 Range/Units 10:41 10:41 12:09 WBC 11.0 H (3.8-10.6) k/uL RBC 3.34 L (4.30-5.90) m/uL Hgb 10.7 L (13.0-17.5) gm/dL Hct 32.9 L (39.0-53.0) % Neutrophils # 9.7 H (1.3-7.7) k/uL Lymphocytes # 0.7 L (1.0-4.8) k/uL Sodium 136 L (137-145) mmol/L Carbon Dioxide (22-30) mmol/L BUN 41 H (9-20) mg/dL Creatinine 1.69 H (0.66-1.25) mg/dL Glucose 161 H (74-99) mg/dL POC Glucose (mg/dL) 130 H (70-110) mg/dL Plasma Lactic Acid Galo (0.7-2.0) mmol/L Troponin I (0.000-0.034) ng/mL Total Protein 6.0 L (6.3-8.2) g/dL Albumin 3.3 L (3.5-5.0) g/dL Urine RBC (0-5) /hpf Urine WBC (0-5) /hpf Urine Bacteria (None) /hpf Thrombosis Risk Factor Assmnt - Choose All That Apply Each Risk Factor Represents 3 Points: Age 75 years or older Thrombosis Risk Factor Assessment Total Risk Factor Score: 3 Thrombosis Risk Factor Assessment Level: Moderate Risk
[2023-01-15] MEDS ORDERED: glipiZIDE 5 MG TAB PO SCH (17:00)
[2023-01-15] MEDS: SODIUM CHLORIDE 0.9% 1,000 ML IV SCH (17:03)
--- NOTE | 2023-01-15 17:41 | CA ---
Transthoracic Echo Report Name: James Crouch Age: 87 Gender: M : 1935 Exam Date: 01/15/2023 09:55 Exam Location: [facility] Ht (in): 69 Wt (lb): 183 Ordering Physician: Jim Meza DO ([email or web address]) Attending/Referring Phys: Parts Counter Associate Jacquie Childers RDCS Procedure CPT: Indications: re: NSTEMI Cardiac Hx: Technical Quality: Good Contrast 1: Total Dose (mL): Contrast 2: Total Dose (mL): MEASUREMENTS (Male / Female) Normal Values 2D ECHO LV Diastolic Diameter PLAX 4.6 cm 4.2 - 5.9 / 3.9 - 5.3 cm LV Systolic Diameter PLAX 3.2 cm IVS Diastolic Thickness 1.2 cm 0.6 - 1.0 / 0.6 - 0.9 cm LVPW Diastolic Thickness 1.3 cm 0.6 - 1.0 / 0.6 - 0.9 cm LV Relative Wall Thickness 0.5 RV Internal Dim ED PLAX 3.4 cm LA Systolic Diameter LX 3.5 cm 3.0 - 4.0 / 2.7 - 3.8 cm LV Diastolic Volume MOD 4C 56.1 cm??? LV Systolic Volume MOD 4C 19.9 cm??? LV Ejection Fraction MOD 4C 64.6 % LV Cardiac Index MOD 4C 1413.3 cm???/min???m??? LV Diastolic Length 4C 7.8 cm LV Systolic Length 4C 6.0 cm LV Diastolic Volume MOD 2C 51.5 cm??? LV Systolic Volume MOD 2C 14.7 cm??? LV Ejection Fraction MOD 2C 71.4 % LV Cardiac Index MOD 2C 1432.9 cm???/min???m??? LV Diastolic Length 2C 8.6 cm LV Systolic Length 2C 6.8 cm LA Volume 71.5 cm??? 18 - 58 / 22 - 52 cm??? M-MODE Aortic Root Diameter MM 3.5 cm MV E Point Septal Separation 0.8 cm AV Cusp Separation MM 2.4 cm DOPPLER AV Peak Velocity 151.0 cm/s AV Peak Gradient 9.1 mmHg MV Peak Velocity 134.0 cm/s MV Peak Gradient 7.2 mmHg MV Mean Velocity 86.7 cm/s MV Mean Gradient 3.3 mmHg MV Velocity Time Integral 44.4 cm MV Area PHT 2.4 cm??? Mitral E Point Velocity 112.2 cm/s Mitral A Point Velocity 110.6 cm/s Mitral E to A Ratio 1.0 MV Deceleration Time 318.6 ms MV E' Velocity 7.9 cm/s Mitral E to MV E' Ratio 14.2 TR Peak Velocity 251.3 cm/s TR Peak Gradient 25.3 mmHg Right Ventricular Systolic Press 29.6 mmHg FINDINGS Left Ventricle Left ventricular ejection fraction is estimated at 60-65%. Left ventricular cavity size normal. Mildly increased septal wall thickness. Right Ventricle Mild right ventricular dilatation. Right ventricular systolic pressure within normal limits. Right Atrium Normal right atrial size. Left Atrium Moderately increased left atrial volume. Mitral Valve Structurally normal mitral valve. Mitral annular calcification. Mild mitral regurgitation. Aortic Valve Trileaflet aortic valve. Thickened aortic valve without stenosis. Tricuspid Valve Structurally normal tricuspid valve. Mild tricuspid regurgitation. Pulmonic Valve Structurally normal pulmonic valve. No pulmonic regurgitation. Pericardium No pericardial effusion. Aorta Normal size aortic root and proximal ascending aorta. CONCLUSIONS Left ventricular ejection fraction 60-65% Mildly increased left ventricular wall thickness RVSP 29 Moderately dilated left atrium Mild mitral regurgitation Mild tricuspid regurgitation Previewed by: Dr. Jim Meza DO (Electronically Signed) Final Date: 15 January 2023 17:40
[2023-01-15 19:38] LABS: Glucose,Whole Blood 164 mg/dL (70-110)
--- NOTE | 2023-01-15 20:27 | US ---
EXAMINATION TYPE: US kidneys/renal and bladder DATE OF EXAM: 01/15/2023 COMPARISON: NONE CLINICAL INDICATION: Male, 87 years old with history of Elevated kidney function; Bladder carrasquillo. Pat ient was on metformin. EXAM MEASUREMENTS: Right Kidney: 10.4 x 4.6 x 5.0 cm Left Kidney: 9.9 x 3.7 x 5.9 cm Right Kidney: Lateral upper simple cyst= 9.2 x 7.7 x 6.0 cm. Inferior pole limited due to gas. Left Kidney: Inferior pole limited due to gas. Bladder: carrasquillo visualized Bilateral Jets not seen due to carrasquillo Prominent prostate IMPRESSION: 1. Large simple cyst right kidney
[2023-01-15] MEDS: DOXAZOSIN 4 MG TAB PO SCH (21:01)
[2023-01-15] MEDS: FINASTERIDE 5 MG TAB PO SCH (21:01)
[2023-01-15] MEDS: PIOGLITAZONE 30 MG TAB PO SCH (21:01)
[2023-01-15] MEDS: ATORVASTATIN 10 MG TAB PO SCH (21:01)
[2023-01-16 05:51] LABS: Glucose,Whole Blood 102 mg/dL (70-110)
[2023-01-16] MEDS: NON FORMULARY DRUG (Omega-3 Fatty Acids [Omega-3] 1,000 MG Capsule) PO SCH (06:59)
[2023-01-16] MEDS: SODIUM CHLORIDE 0.9% 1,000 ML IV SCH (07:17)
[2023-01-16 09:05] VITALS: PULSE 74; TEMP 99.2
[2023-01-16] MEDS: CHOLECALCIFEROL 25 MCG (1000 IU) TABLET PO SCH (09:05)
[2023-01-16] MEDS: glipiZIDE 10 MG TAB PO SCH (09:05)
[2023-01-16] MEDS: MULTIVITAMINS, THERA 1 EACH TAB PO SCH (09:05)
[2023-01-16] MEDS: PANTOPRAZOLE 40 MG TABLET PO SCH (09:05)
--- NOTE | 2023-01-16 10:16 | P.PN ---
Subjective Progress Note Date: 01/16/23 Principal diagnosis: Urinary retention, gross hematuria The patient is an 87-year-old white male with a history of BPH, for which he takes finasteride 5 mg daily and terazosin 5 mg daily. One week ago, he presented to [facility] due to inability to urinate. A Gee catheter was placed, with return of 1500 mL of urine. The patient was transferred to [facility] due to the development of hematuria and Gee catheter occlusion. Following admission yesterday, his 14-Greenlandic Gee catheter was exchanged for an 18-Greenlandic catheter, which is currently draining clear yellow urine. He is comfortable. Objective - Vital Signs Vital signs: Vital Signs Temp 99.2 F 01/16/23 09:05 Pulse 74 01/16/23 09:05 Resp 16 01/16/23 09:05 BP 102/62 01/16/23 09:05 Pulse Ox 95 01/16/23 09:06 FiO2 Intake & Output 01/15/23 01/16/23 01/16/23 18:59 06:59 18:59 Intake Total 596 240 Output Total 1300 800 Balance -704 -800 240 Intake: Oral 596 240 Output: Urine 1300 800 Other: Voiding Method Indwelling Catheter Indwelling Catheter - Constitutional General appearance: Present: average body habitus, no acute distress - Psychiatric Psychiatric: Present: A&O x's 3 - Labs CBC & Chem 7: 01/15/23 10:41 01/15/23 10:41 Labs: Abnormal Lab Results - Last 24 Hours (Table) 01/15/23 01/15/23 01/15/23 Range/Units 10:41 10:41 12:09 WBC 11.0 H (3.8-10.6) k/uL RBC 3.34 L (4.30-5.90) m/uL Hgb 10.7 L (13.0-17.5) gm/dL Hct 32.9 L (39.0-53.0) % Neutrophils # 9.7 H (1.3-7.7) k/uL Lymphocytes # 0.7 L (1.0-4.8) k/uL Sodium 136 L (137-145) mmol/L BUN 41 H (9-20) mg/dL Creatinine 1.69 H (0.66-1.25) mg/dL Glucose 161 H (74-99) mg/dL POC Glucose (mg/dL) 130 H (70-110) mg/dL Total Protein 6.0 L (6.3-8.2) g/dL Albumin 3.3 L (3.5-5.0) g/dL 01/15/23 01/15/23 Range/Units 16:28 19:36 WBC (3.8-10.6) k/uL RBC (4.30-5.90) m/uL Hgb (13.0-17.5) gm/dL Hct (39.0-53.0) % Neutrophils # (1.3-7.7) k/uL Lymphocytes # (1.0-4.8) k/uL Sodium (137-145) mmol/L BUN (9-20) mg/dL Creatinine (0.66-1.25) mg/dL Glucose (74-99) mg/dL POC Glucose (mg/dL) 183 H 164 H (70-110) mg/dL Total Protein (6.3-8.2) g/dL Albumin (3.5-5.0) g/dL Assessment and Plan (1) Urinary retention Current Visit: Yes Status: Acute Code(s): R33.9 - RETENTION OF URINE, UNSPECIFIED SNOMED Code(s): 066202054 (2) Benign prostatic hyperplasia with lower urinary tract symptoms Current Visit: Yes Status: Acute Code(s): N40.1 - BENIGN PROSTATIC HYPERPLASIA WITH LOWER URINARY TRACT SYMP SNOMED Code(s): 304338968 Plan: From a urologic standpoint, the patient may be discharged home today with the Gee catheter. He will continue to take terazosin and finasteride and keep his previously scheduled appointment to see Dr. Delgado tomorrow. Please notify me if we can be of further assistance.
--- NOTE | 2023-01-16 11:40 | P.PN ---
Subjective Progress Note Date: 01/16/23 History of present illness: Patient is a pleasant 87-year-old male with significant past medical history of diabetes type 2, hypertension, hyperlipidemia, and BPH who was transferred from [facility] for further management of urinary retention and hematuria. He reports that approximately 1 week ago he had a Gee catheter placed for urinary retention, this was then removed yesterday morning however he was unable to pass urine and had Gee catheter replaced. He then developed hematuria and blood clots in his catheter and presented back to the hospital. Cardiology was consulted for abnormal troponins. He does not follow with a biomechanical engineer and denies having any heart stents. He believes his last stress test was many years ago. He has not been having any chest pain or pressure. Denies any shortness of breath, dizziness, syncope. He was on aspirin previously but reports he has not been on any blood thinners for many years. Denies any recent illness, no fevers or chills. Labs reviewed: Lactic acid 3.0 initially. Troponin elevated 0.161, 0.185. Creatinine 1.97. Hemoglobin 11.2. He is currently being treated for urinary tract infection. He did receive aspirin overnight. EKG shows sinus rhythm with right bundle branch block, nonspecific T-wave inversion. 01/16/23 Echocardiogram 01/15/23 with EF 60-65%, RVSP 29, mild mitral regurgitation, mild tricuspid regurgitation. He reports that he has been doing okay, denies any chest pain or pressure. Denies any shortness of breath. PHYSICAL EXAMINATION: This is a 87-year-old male in no apparent distress at the time of my examination. HEENT: Head is atraumatic, normocephalic. There is no jugular venous distention. No carotid bruit is heard. CHEST EXAMINATION: Lungs are clear to auscultation. No chest wall tenderness is noted on palpation or with deep breathing. HEART EXAMINATION: Heart regular rate and rhythm. S1, S2 heard. No murmurs, gallops or rub. ABDOMEN: Soft, nontender. Bowel sounds are heard. Gee catheter in place draining dark urine. EXTREMITIES: 2+ peripheral pulses with no evidence of peripheral edema and no calf tenderness noted. NEUROLOGIC EXAMINATION: Patient is awake, alert and oriented x3. IMPRESSION AND PLAN: NSTEMI likely secondary to elevated creatinine and/or infection Hypertension, blood pressure is currently borderline low Hyperlipidemia Diabetes type 2 BPH Urinary retention Hematuria PLAN: Echocardiogram is stable. Elevated troponins are likely secondary to increased kidney function and urinary tract infection. No further cardiac workup is necessary at this time unless he begins to become symptomatic. No beta sven started due to low blood pressures. No aspirin started to hematuria. Continue with current regimen. Cardiology to sign off, please call with any questions or concerns. Follow-up in outpatient clinic in 1 week. I am dictating on behalf of Dr. Jim Meza's history/physical and assessment/plan. Objective - Vital Signs Vital signs: Vital Signs Temp 99.2 F 01/16/23 09:05 Pulse 74 01/16/23 09:05 Resp 16 01/16/23 09:05 BP 102/62 01/16/23 09:05 Pulse Ox 95 01/16/23 09:06 FiO2 Intake & Output 01/15/23 01/16/23 01/16/23 18:59 06:59 18:59 Intake Total 596 240 Output Total 1300 800 Balance -704 -800 240 Intake: Oral 596 240 Output: Urine 1300 800 Other: Voiding Method Indwelling Catheter Indwelling Catheter Indwelling Catheter - Labs CBC & Chem 7: 01/15/23 10:41 01/15/23 10:41 Labs: Abnormal Lab Results - Last 24 Hours (Table) 01/15/23 01/15/23 01/15/23 Range/Units 10:41 12:09 16:28 Sodium 136 L (137-145) mmol/L BUN 41 H (9-20) mg/dL Creatinine 1.69 H (0.66-1.25) mg/dL Glucose 161 H (74-99) mg/dL POC Glucose (mg/dL) 130 H 183 H (70-110) mg/dL Total Protein 6.0 L (6.3-8.2) g/dL Albumin 3.3 L (3.5-5.0) g/dL 01/15/23 Range/Units 19:36 Sodium (137-145) mmol/L BUN (9-20) mg/dL Creatinine (0.66-1.25) mg/dL Glucose (74-99) mg/dL POC Glucose (mg/dL) 164 H (70-110) mg/dL Total Protein (6.3-8.2) g/dL Albumin (3.5-5.0) g/dL
[2023-01-16 11:47] LABS: Glucose,Whole Blood 128 mg/dL (70-110)
[2023-01-16 12:59] VITALS: BP 112/64; RESP 18
--- NOTE | 2023-01-16 17:10 | P.DS ---
Providers Date of admission: 01/14/23 20:56 Expected date of discharge: 01/16/23 Attending physician: Dipak Carroll Consults: 01/14/23 20:56 Consult Physician Routine Consulting Provider: Urbano Harden Consult Reason/Comments: retention Do you want consulting provider notified?: Yes Primary care physician: Pipo Griffith [facility] Course: Chief Complaint: Hematuria Pleasant 87-year-old patient who follows with Dr. Pipo Griffith. Chronic stable medical conditions include hypertension, hyperlipidemia, BPH, diabetes, GERD. Patient lives alone and is able to get about on his own. About a week ago patient went down to [facility] for urinary retention. Gee catheter was placed and patient about 1500 mL of urine. She has seen urologist Dr. London in the past. After 4 days patient went on a truck ride with a friend who is a rather bumpy ride to the catheter pulling. Patient started having hematuria for that. Gee catheter had to be changed at the outside ER and again 30 90 mL of urine was obtained. He was then transferred to [place] in [employer]. Seen by urologist. Here he was changed to a 14-[place]ank[place] catheter. It is started to clear up. Patient also noted to have intermittent bleeding which she notices on his started pain but after bowel movement. This is examined at [place] he was told he has hemorrhoids. Currently patient laying in bed. Comfortable. Patient's son and [id number] at the bedside. Patient states he has elevated chronic kidney disease. 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 January 16: Stat labs are ordered this morning. Nurse called me back that we have shortage of counterintelligence/humint specialist hence it cannot be done. Patient does not want to wait. Labs will be done tomorrow at the PCP. Lisinopril has been discontinued. Discussed the blood pressure with the patient and family at the bedside. Patient follows Dr. London. Urine is cleared up in the Gee catheter. Discussion and discharge planning more than 35 minutes Past medical history to include: Hypertension, hyperlipidemia, BPH, GERD, osteoarthritis Social history: Lives alone. No smoking or alcohol.. Hasn't sought of the farm and also helps out of insurance company. Physical examination: VITAL SIGNS: 99.2, 74, 18, 112/64, 96% room air GENERAL: Up in a chair, comfortable EYES: Pupils equal. Conjunctiva normal. HEENT: External appearance of nose and ears normal, oral cavity grossly normal. Decreased hearing NECK: JVD not raised; masses not palpable. HEART: First and second heart sounds are normal; no edema. LUNGS: Respiratory rate normal; clear to auscultation. ABDOMEN: Soft, nontender, liver spleen not palpable, no masses palpable. Gee catheter with yellow urine PSYCH: Alert and oriented x3; mood and affect normal. MUSCULOSKELETAL:No Clubbing/cyanosis;muscles-grossly intact. OA INVESTIGATIONS, reviewed in the clinical context: January 15: White count 11 hemoglobin 10.7 platelets 170 potassium 4.2 BUN 41 and creatinine 1.69 Troponin I 0.07, 0.161, 0.18 Assessment and plan: -Acute hematuria, which developed when patient was riding in a truck, remembers Gee catheter pulling on his penis. Traumatic hematuria. Has started to clear up. 14-[place]ankan catheter was placed in the ER. Patient to follow-up with Dr. London outpatient. Seen by Dr. Pena of this admission. -Chronic kidney disease suspect stage III. Rule out obstructive component. There could be a component of diabetic nephropathy. Will DC patient's JEANINE inhibitor as blood pressure running on the lower side. -Severe BPH Proscar. Hytrin. -Diabetes mellitus type 2 on oral hypoglycemic On Glucotrol, glipizide, Actos. Follow Accu-Chek with sliding scale insulin -Primary osteoarthritis Tylenol as needed -Essential hypertension Keep patient on Hytrin. Patient is also on Cardura. Stop lisinopril. -Full code. Discussed with patient Disposition: Home Outpatient labs: CBC BMP: Tomorrow Past Medical History Past Medical History: Prostate Disorder History of Any Multi-Drug Resistant Organisms: None Reported Past Surgical History: Back Surgery Past Anesthesia/Blood Transfusion Reactions: No Reported Reaction Past Psychological History: No Psychological Hx Reported Smoking Status: Never smoker Past Alcohol Use History: None Reported Past Drug Use History: None Reported Plan - Discharge Summary Discharge Rx Participant: Yes New Discharge Prescriptions: New Atorvastatin [Lipitor] 10 mg PO HS #30 tab Continue Vitamin B Complex With Vitamin C 1 tab PO DAILY glipiZIDE [Glucotrol] 10 mg PO AC-BRKFST@1000 [place]-3 Fatty Acids [[place]-3] 1,000 mg PO HS Omeprazole 20 mg PO DAILY Pioglitazone [Actos] 30 mg PO HS Cholecalciferol [Vitamin D3 (25 Mcg = 1000 Iu)] 25 mcg PO DAILY Finasteride [Proscar] 5 mg PO HS glipiZIDE 5 mg PO AC-SUPPER@1700 Multivit-Min/FA/Lycopen/Lutein [Centrum Silver Men Tablet] 1 tab PO DAILY Terazosin [Hytrin] 5 mg PO HS Discontinued lisinopriL [Zestril] 5 mg PO HS Simvastatin [Zocor] 20 mg PO HS Discharge Medication List Cholecalciferol [Vitamin D3 (25 Mcg = 1000 Iu)] 25 mcg PO DAILY 01/14/23 [History] Finasteride [Proscar] 5 mg PO HS 01/14/23 [History] Multivit-Min/FA/Lycopen/Lutein [Centrum Silver Men Tablet] 1 tab PO DAILY 01/14/23 [History] [place]-3 Fatty Acids [[place]-3] 1,000 mg PO HS 01/14/23 [History] Omeprazole 20 mg PO DAILY 01/14/23 [History] Pioglitazone [Actos] 30 mg PO HS 01/14/23 [History] Terazosin [Hytrin] 5 mg PO HS 01/14/23 [History] Vitamin B Complex With Vitamin C 1 tab PO DAILY 01/14/23 [History] glipiZIDE 5 mg PO AC-SUPPER@1700 01/14/23 [History] glipiZIDE [Glucotrol] 10 mg PO AC-BRKFST@1000 01/14/23 [History] Atorvastatin [Lipitor] 10 mg PO HS #30 tab 01/16/23 [Rx] Follow up Appointment(s)/Referral(s): Pipo Griffith MD [Primary Care Provider] - 1-2 days (Please call Tuesday to schedule follow up) Max Delgado MD [STAFF PHYSICIAN] - 1 Week (Please call Tuesday to schedule follow up) Patient Instructions/Handouts: *[facility] - Gee Catheter Instructions, Urinary Retention in Men (GEN) Discharge Disposition: HOME SELF-CARE
== END 2023-01-16 15:48 | disposition home or self-care (01) ==
LOC: EC 16:02 → 3SCARD 20:56
PROVIDERS: ADMIT Hospitalist; ATTEND Hospitalist
DX: R31.0 Gross hematuria (principal); N39.0 Urinary tract infection, site not specified; E78.5 Hyperlipidemia, unspecified; R77.8 Other specified abnormalities of plasma proteins; N40.1 Benign prostatic hyperplasia with lower urinary tract symptoms; R33.8 Other retention of urine; K21.9 Gastro-esophageal reflux disease without esophagitis; I12.9 Hypertensive chronic kidney disease with stage 1 through stage 4 chronic kidney disease, or unspecified chronic kidney disease; N18.9 Chronic kidney disease, unspecified; E11.22 Type 2 diabetes mellitus with diabetic chronic kidney disease; M19.91 Primary osteoarthritis, unspecified site; Z79.84 Long term (current) use of oral hypoglycemic drugs; Z79.899 Other long term (current) drug therapy
CPT/HCPCS: 96366 ×2; 96365; 99285; 36415; 94760; 93306; 83880; 80053 ×2; 83605 ×2; 83735 ×2; 84100 ×2; 84484 ×2; 85025 ×2; 85610; 85730; 81001; 87040; 76770; G0378 ×3; S0138 ×2; J0696 ×3

== ENCOUNTER → 2023-01-17 | Outpatient (CLI) | payer MEDICARE ==
[2023-01-17 16:28] LABS: BUN/Creat Ratio 16.56 Ratio (12.00-20.00); Blood Urea Nitrogen 26.5 mg/dL (9.0-27.0); Carbon Dioxide 25.5 mmol/L (21.6-31.8); Chloride 104 mmol/L (96-109); Glucose 195 mg/dL (70-110); Potassium 4.9 mmol/L (3.5-5.5); Sodium 140 mmol/L (135-145)
[2023-01-17 18:20] LABS: HCT 33.6 % (39.6-50.0); HGB 10.6 d/dL (13.0-17.0); MCH 30.4 pg (27.0-32.0); MCHC 31.5 d/dL (32.0-37.0); MCV 96.3 FL (80.0-97.0); Mean Platelet Volume 9.1 FL (9.5-12.2); NRBC Per 100 WBC 0 X 10*3/uL (0.00-0.01); Platelet Count 188 X 10*3/uL (140-440); RBC 3.49 X 10*6/uL (4.40-5.60); RDW 14.1 % (11.5-14.5); WBC 6.23 X 10*3/uL (4.50-10.00)
== END | disposition home or self-care (01) ==
LOC: LABWHC1 09:17
PROVIDERS: ATTEND Hospitalist
DX: I12.9 Hypertensive chronic kidney disease with stage 1 through stage 4 chronic kidney disease, or unspecified chronic kidney disease (principal); N18.9 Chronic kidney disease, unspecified; E11.22 Type 2 diabetes mellitus with diabetic chronic kidney disease; E78.5 Hyperlipidemia, unspecified; K21.9 Gastro-esophageal reflux disease without esophagitis; R77.8 Other specified abnormalities of plasma proteins
CPT/HCPCS: 36415; 80048; 85027